=== PATIENT | female | born 1935 | race Caucasian/White ===

== ENCOUNTER → 2020-05-03 | Outpatient (CLI) | payer OTHER ==
[~2020-05-03] MED LIST: CATAPRES0.1 MG PO; CLARITIN10 MG PO; D3-200050 MCG PO; ENALAPRIL-HCTZ1 EACH PO; GLYBURIDE 1.21.25 M1 PO; KLOR-CON 10 ER10 MEQ PO; LEXAPRO20 MG PO; LOMOTIL TABLET1 EACH; METFORMIN HCL500 MG PO; NORCO 5-325 TA1 EACH PO; NORVASC 5 MG TAB5 MG PO; PAXIL 20 MG TAB20 M1 PO; PRAVACHOL20 MG PO; PRAVASTATIN SOD20 MG PO; RISEDRONATE SO150 MG PO; VICODIN ES TAB1 EACH PO
--- NOTE | 2020-05-13 16:06 | PATH ---
[address] [address] PATHOLOGY RPT PROCEDURE Name: MELISA SEO Room: [facility]#: [id number] Admission: 05/03/20 Date of : 33 Discharge: Report #: [id number] Path Case #: [id number] [facility] Accession Number: [id number] . 01 Material submitted: . PART A: breast - RIGHT BREAST 1:00 14CMFN. Modifiers: right, 1:00 PART B: breast - RIGHT BREAST 12:00 7CMFN. Modifiers: right . 01 Clinical history: . A. 1.62 X 1.65 X 1.63 CM B. 2.86 X 2.19 X 2.04 CM . 02 Diagnosis: A. 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 SEE COMMENT. . B. Right breast, 12:00, 7 cm from nipple, image guided core biopsies: - Benign breast tissue with focal luminal calcification, scant atrophic skeletal muscle and dense fibrosis, negative for atypia. See comment. (GOKUL/db; 05/04/2020) LBQ 05/04/2020 1632 Local . 02 Comment: SURGICAL PATHOLOGY CANCER CASE SUMMARY Protocol posting date: September 2019 . INVASIVE CARCINOMA OF THE BREAST: Biopsy Procedure ___ Other: Image guided core biopsy Specimen Laterality ___ Right Tumor Site ___ Clock position: 1 o'clock ___ Distance from nipple: 14 cm Tumor Size ___ Greatest dimension of largest invasive focus >1 mm: At least 13 mm Histologic Type ___ Invasive carcinoma of no special type (ductal) Histologic Grade (Findlay Histologic Score) Glandular (Acinar)/Tubular Differentiation ___ Score 3 (<10% of tumor area forming glandular/tubular structures) Nuclear Pleomorphism ___ Score 3 (vesicular nuclei, often with prominent nucleoli, exhibiting marked variation in size and shape, occasionally with very large and bizarre forms) Mitotic Rate ___ Score 3 [place] [address] PATHOLOGY RPT PROCEDURE Name: MELISA SEO Room: [facility] Yolanda#: [id number] Admission: 05/03/20 Date of : 33 Discharge: Report #: [id number] Path Case #: [id number] Overall Grade ___ Grade 3 (scores of 8 or 9) Ductal Carcinoma In Situ (DCIS) ___ Not identified Lymphovascular Invasion ___ Not identified Microcalcifications ___ Not identified Ancillary Studies ___ Performed on prior right breast biopsy around August 2012 ([id number]) Estrogen receptor 82% positive, progesterone receptor 5% positive, Her2 (IHC) 2+, Her2/FISH positive by polysomy, Ki-67 37% . Biomarker Studies ___ Pending . COMMENT Approximately 90% of the submitted tissues from specimen A show involvement by invasive tumor and non-neoplastic breast epithelial elements are not present in that specimen. Per discussion with Dr. Mercy Groves, breast tumor profile studies will be performed on A1 and will be the subject of an addendum report. Nusrat Law notified at approximately 1615 on 05/04/2020. Specimens A and B reviewed with Dr. Karina Hogan who agrees with the diagnoses. (GOKUL/db; 05/04/2020) . 02 Addendum: . Special studies report received from [facility], [address] [place] [address], [address], [place], [address], on case [id number], labeled with their number [id number], dated 05/10/2020. . Breast/Prognostic Marker Analysis . Specimen Site: Right Breast, 1:00 (Biopsy), Infiltrating Specimen ID #: [id number] . ER (Estrogen Receptor) Present/Positive Percent: 40.00% Analysis: Manual Comments: Staining Intensity: Weak-moderate. . NM (Progesterone Receptor) Absent/Negative Percent: 0.20% Analysis: Manual . [place] [address] PATHOLOGY RPT PROCEDURE Name: MELISA SEO Room: [facility] OSCAR Guerrero#: [id number] Admission: 05/03/20 Date of : 34 Discharge: Report #: [id number] Path Case #: [id number] Score: 2+ Analysis: Manual Comments: Additional studies: Reflex HER2 by FISH will be reported separately. . Ki-67 High Proliferation Percent: 30.00% Analysis: Manual . Time to Fixation (Cold Ischemic Time): 3 Minutes Duration of Fixation: 14 Hours Type of Fixative: 10% Neutral Buffered Formalin . Comments: ER/PgR testing at [employer]. is performed in compliance with the ASCO/CAP Clinical Practice Guidelines. If the result for ER is less than 1% it is reported as Negative; if the ER result is 1-10% it is reported as Low Positive; if the ER result is greater than 10% it is reported as Positive. If the result for PgR is less than 1% it is reported as Negative; if the PgR result is equal to or greater than 1%, it is reported as Positive. . Ref: Ymui KH, Jennifer KNAPP, Aydin M, et al. Estrogen and progesterone receptor testing in breast cancer. ASCO/CAP guideline update. Arch Pathol Lab Med. 2020; 144:545-563. . Whole slide image capture is performed using [employer] (BioIQ) platform. Image analysis, if ordered, is performed using Apps Genius software. . at [employer]. Reji Ordonez M.D. Pathologist . . Methodology The HER2 Receptor protein expression is analyzed using the Gaines HER2 rabbit monoclonal antibody (clone [id number]). This assay is used for diagnostic determination of the HER2 protein over-expression in paraffin embedded, formalin fixed breast cancer tissue on the [email or web address] Benchmark. The specimen is processed using a secondary antibody-HRP conjugate detection system. The membrane staining of the tumor is determined either by manual score or image analysis. This antibody is intended for in vitro diagnostic use. The score is reported as 0, 1+, 2+, or 3+. This test is used for clinical purposes. . A rabbit monoclonal antibody (clone SP1) that [place] [address] PATHOLOGY RPT PROCEDURE Name: MELISA SEO [id number] Admission: 05/03/20 Date of : 34 Discharge: Report #: [id number] Path Case #: [id number] Receptor is used to perform immunohistochemistry on routinely fixed (formalin) paraffin embedded tissue on the Gaines Benchmark. The specimen is processed using a secondary antibody-HRP conjugate detection system. The percentage of stained tumor nuclei is determined either manually or by image analysis. This test is intended for in vitro diagnostic use. This test is used for clinical purposes. . A rabbit monoclonal antibody (clone 1E2) that recognized the Progesterone Receptor is used to perform immunohistochemistry on routinely fixed (formalin) paraffin embedded tissue on the Gaines Benchmark. The specimen is processed using a secondary antibody-HRP conjugate detection system. The percentage of stained tumor nuclei is determined either manually or by image analysis. This test is intended for in vitro diagnostic use. This test is used for clinical purposes. . A rabbit monoclonal antibody (clone 30-9) that recognized Ki67 is used to perform immunohistochemistry on routinely fixed (formalin) paraffin embedded tissue on the Gaines Benchmark. The specimen is processed using a secondary antibody-HRP conjugate detection system. The percentage of stained tumor nuclei is determined either manually or by image analysis. This test is intended for in vitro diagnostic use. This test is used for clinical purposes. . Intended Use: This antibody is intended for in vitro diagnostic (IVD) use. HER2 (4B5) is a rabbit monoclonal antibody intended for the semi-quantitative detection of HER2 antigen in sections of formalin-fixed, paraffin embedded normal and neoplastic tissue. . This antibody is intended for in vitro diagnostic (IVD) use. Estrogen Receptor (ER) (SP1) is a rabbit monoclonal antibody (IgG) that is intended for the qualitative detection of estrogen receptor (ER) antigen in sections of formalin-fixed, paraffin-embedded tissue. ER is a rabbit monoclonal antibody that recognizes human estrogen receptor alpha. . This antibody is intended for in vitro diagnostic (IVD) use. Progesterone Receptor (NM) (1E2) is a rabbit monoclonal antibody (IgG) that is intended for the qualitative detection of progesterone receptor (NM) antigen in sections of formalin fixed, paraffin embedded tissue. NM is a rabbit monoclonal antibody that recognizes the A and B forms of the human progesterone receptor. . This antibody is intended for in vitro diagnostic (IVD) use. Ki-67 (30-9) is a rabbit monoclonal antibody (IgG) directed against C-terminal portion of Ki-67 antigen. Staining for Ki-67 can be used to aid in assessing the proliferative activity of normal and neoplastic tissue. Ki-67 is a nuclear protein expressed in proliferating cells. During the cell cycle, the Ki-67 antigen is present in the G1, S, G2 and M phase but is absent in the G0 (quiescent phase). [place] [address] PATHOLOGY RPT PROCEDURE Name: MELISA SEO Room: [facility]#: [id number] Admission: 05/03/20 Date of : 34 Discharge: Report #: [id number] Path Case #: [id number] . . Disclaimer: This Test was performed by [employer]. at [address] [place] [address], [facility]. . [employer] is a business unit of [employer]. a wholly-owned subsidiary of [employer] . This assay has not been validated on decalcified tissues. Results should be interpreted with caution if this specimen was decalcified given the likelihood of false negativity on decalcified specimens. . Any image(s) that accompany this report is/are a auto service representative image(s) only and should not be used to render a diagnosis. . This interpretation is contingent on the specimen and the clinical information received. . For any special tests/stains performed, known positive cells or tissues are tested with each marker and examined to ensure positivity. Positive and negative internal controls, if present, react appropriately. . This analysis is an adjunct to the evaluation of the referring physician and does not represent a final diagnosis. . The immunohistochemistry tests performed at [employer]. were validated on tissue fixed in 10% neutral buffered formalin. The performance characteristics of the tests performed on tissue processed in other fixatives is not known. . HER2 testing at [employer]., is performed in compliance with the 2018 updated ASCO/CAP Clinical Practice Guideline Focused Update. If the result is EQUIVOCAL (2+), it must be confirmed by an alternative assay such as FISH or Dual FLO. REF: Trevon CASTREJON, KYAW Rodriguez et al: Human Epidermal Growth Factor Receptor 2 Testing in Breast Cancer: ASCO/CAP Clinical Practice Guideline Focused Update. J Clin Oncol 36:7697-5053, 2018. . HER2 and ER/NM ASCO/CAP guidelines require fixation in neutral buffered formalin for a minimum of 6 and a maximum of 72 hours. Fixation times less than 6 hours may not adequately preserve cell proteins. Fixation times longer than 72 hours may cause excess cross-linking of proteins reducing the antigen available for staining. Either scenario can cause reduced staining; hence false negative results are possible and should be considered for these situations if the HER2 IHC score is less than 3+ or ER or NM is negative (no staining or <1% positive). It is recommended that specimens fixed longer than 72 hours with HER2 IHC scores less than 3+ [place] [address] PATHOLOGY RPT PROCEDURE Name: HILARYODELLMELISA R [facility]: [facility].#: [id number] Admission: 05/03/20 Date of : 34 Discharge: Report #: [id number] Path Case #: [id number] confirmed by HER2 FISH or Dual FLO. The time from biopsy/excision to fixation in formalin (cold ischemic time) must be less than 1 hour. Time to fixation (cold ischemic time) greater than 1 hour should be interpreted with caution. HER2 testing, mainly HER2 by FISH, is particularly vulnerable since excessive cold ischemic time results in preferential loss of HER2 probe signals that may lead to false negative results. . SCORE STAINING PATTERN IN TUMOR CELLS INTERPRETATION RESULTS 0 No staining observed or incomplete, faint membrane staining in less than or equal to 10% of tumor cells. Negative 1+ Incomplete, faint membrane staining in greater than 10% of tumor cells. Negative 2+ Weak to moderate complete membrane staining observed in greater than 10% of tumor cells. Equivocal* *Must be confirmed by alternative assay (IHC/FISH/Dual FLO) 3+ Intense, complete membrane staining in greater than 10% of tumor cells. Positive . A complete copy of the report is on file. . Professional and Technical services performed by [employer]. at [address] [place] [address], [address] [address]. . (MLK:kel 05/10/2020) . [facility]/05/10/2020 Addendum Electronically Signed by Josh Cota MD, Pathologist Addendum #2: Special studies report received from [facility], [address] [place] [address], [facility] [address], [place], [address], on case [id number], labeled with their number [id number], dated 05/13/2020. . Fluorescence in situ Hybridization (FISH) Report HER2/CRISTINA-17 Dual-Probe (Breast Cancer) . Result: Negative/Not Amplified HER2/CRISTINA-17 Ratio: 1.1 Avg number of HER2 Signals/Nucleus: 3.9 . Indication for Study: Breast Cancer . Specimen Site/Type: Right Breast, 1:00 (Biopsy) [place] [address] PATHOLOGY RPT PROCEDURE Name: MELISA SEO Room: [facility]#: [id number] Admission: 05/03/20 Date of : 34 Discharge: Report #: [id number] Path Case #: [id number] . Fixative: 10% Neutral Buffered Formalin . Time to Fixation: 3 minutes . Duration of Fixation: 14 Hours . HER2 FISH ANALYSIS Number of tumor cells counted: 20 Number of observers: 2 Avg number of HER2 Signals/Nucleus: 3.9 Avg number of CRISTINA-17 Signals/Nucleus: 3.4 Ratio of average HER2/CRISTINA-17: 1.1 . See report [id number] for further information. . Reviewed and electronically signed by Reji Ordonez M.D. on 05/13/2020 at [employer]. Reji Ordonez M.D. . . Methodology: A FDA approved DAKO HER2 IQFISH pharmDX (HER2/CRISTINA-17 DNA Probe Kit) was used for the assessment of HER2 gene amplification status. The FISH analysis was performed on areas of invasive tumor cells that were defined by a pathologist from a corresponding H and E slide. A minimum of twenty invasive tumor nuclei were analyzed by two technologists. For each nucleus, the number of HER2 signals and the number of centromere 17 (CRISTINA-17) signals were recorded. Enumeration results are reported as a ratio of the total HER2 hybridization signals to CRISTINA-17 hybridization signals. An average number of HER2 signals/nucleus and an average number of centromere 17 signals/nucleus were also recorded. If the HER2/CRISTINA-17 ratio is >/= 2, the HER2 gene status is Amplified/Positive. If the HER2/CRISTINA-17 ratio is <2, the HER2 gene status is Non-Amplified/Negative. If results are at or near the cut off (1.8-2.2), an additional 20 nuclei are counted and the ratio for 40 nuclei is recalculated. A HER2/CRISTINA-17 ratio of 1.8-2.2 should be interpreted with caution. The HER2 FISH results are reported using the 2018 ASCO/CAP guidelines. . ASCO/CAP 2018 SCORING CRITERIA GROUP 1 HER2/CRISTINA-17 ratio >/= 2.0 HER2 signals/cell >/= 4.0 FISH Positive . GROUP 2 HER2/CRISTINA-17 ratio >/= 2.0 HER2 signals/cell < 4.0 Additional work-up required (see comments) [place] [address] PATHOLOGY RPT PROCEDURE Name: MELISA SEO Room: [facility] Guerrero#: [id number] Admission: 05/03/20 Date of : 34 Discharge: Report #: [id number] Path Case #: [id number] . GROUP 3 HER2/CRISTINA-17 ratio < 2.0 HER2 signals/cell >/= 6.0 Additional work-up required (see comments) . GROUP 4 HER2/CRISTINA-17 ratio < 2.0 HER2 signals/cell >/= 4.0 AND < 6.0 Additional work-up required (see comments) . GROUP 5 HER2/CRISTINA-17 ratio < 2.0 HER2 signals/cell < 4.0 FISH Negative . Specimen handling: Tissue samples should be preserved in 10% neutral buffered formalin for 18-24 hours per FDA approved DAKO HER2 IQFISH pharmDX. Extended fixation time might increase the incubation time required for Pepsin digestion. ASCO/CAP guidelines requires fixation for a minimum of 6 and a maximum of 72 hours. The time from biopsy/excision to fixation in formalin (cold ischemic time) must be less than an hour. Time to fixation (cold ischemic time) greater than 1 hour should be interpreted with caution. HER2 testing, mainly HER2 by FISH, is particularly vulnerable since excessive cold ischemic time results in preferential loss of HER2 probe signals that may lead to false negative results. . Intended Use: HER2 IQFISH pharmDX is indicated as an aid in the assessment of breast cancer patients for whom Herceptin (Trastuzumab), PERJETATM (pertuzumab) or KADCYLATM (ado-trastuzumab emtansine) treatment is being considered. Results from HER2 IQFISH pharmDX are also used as an adjunct to the clinicopathologic information currently used for estimating prognosis in stage II, node-positive breast cancer patients. . Reference: Trevon CASTREJON, KYAW Rodriguez et al: Human Epidermal Growth Factor Receptor 2 Testing in Breast Cancer: ASCO/CAP Clinical Practice Guideline Focused Update. J Clin Oncol 36:7077-3203, 2018. . DAKO kit: Histology FISH Accessory kit code K5799 . Disclaimer(s): This assay has not been validated on decalcified tissues. Results should be interpreted with caution if this specimen was decalcified given the likelihood of false negativity on decalcified specimens. Any image(s) that accompany this report is/are a auto service representative image(s) only and should not be used to [place] a [place] [address] PATHOLOGY RPT PROCEDURE Name: MELISA SEO Room: [facility]#: [id number] Admission: 05/03/20 Date of : 34 Discharge: Report #: [id number] Path Case #: [id number] . Performing Labs: This Test was performed at [employer]. at [address], [address]. [employer] is a business unit of [employer] a wholly-owned subsidiary of [employer] . A copy of the complete report is on file. . Professional services performed by [employer]. at [address] [address], [place] [address]. Technical services performed by [employer]. at [address] [place] [address] [address], [place] [address]. . (GOKUL:[facility] 05/13/2020) . [facility]/05/13/2020 Addendum Electronically Signed by Pb Acosta MD, Pathologist . 02 Electronically signed: . Pb Acosta MD, Pathologist NPI- [id number] . 01 Gross description: . A. The specimen is received in formalin, labeled "Melisa Seo, right breast 1:00 14 cm from nipple". Received are multiple needle cores of fibrofatty tissue measuring 1.7 x 0.8 x 0.2 cm in aggregate dimensions. The specimen is submitted entirely in cassettes A1 through A3. The cold ischemic time is 3 minutes. The total formalin fixation time is 14 hours. . . B. The specimen is received in formalin, labeled "Melisa Seo, right breast 12:00 7 cm from nipple". Received are multiple needle cores of fibrofatty tissue measuring 1.5 x 0.6 x 0.2 cm in aggregate dimensions. The specimen is submitted entirely in cassettes B1 through B3. The cold ischemic time is 5 minutes. The total formalin fixation time is 14 hours and 6 minutes. (CAA; 05/03/2020) QAC/QAC 05/03/2020 1739 Local . 02 Pathologist provided ICD-10: C50.911, N60.31 . 02 CPT . 634690, 709091 Specimen Comment: A courtesy copy of this report has been sent to [phone], [phone] Specimen Comment: [id number], , [place] [address] PATHOLOGY RPT PROCEDURE Name: MELISA SEO Room: [facility]#: [id number] Admission: 05/03/20 Date of : 34 Discharge: Report #: [id number] Path Case #: [id number] Specimen Comment: Report sent to ,DR GROVES,DR PATTERSON / DR LAW Performed at: 01 [facility] [address] [address] [facility] [address], [place], [place] [id number] MD Cayetano Lemos MD Phone: [phone] Performed at: [address] [facility] [address] RADHA Flores [id number] MD Pb Acosta MD Phone: [phone]
== END | disposition home or self-care (01) ==
LOC: M.ULTRA 07:28
PROVIDERS: ATTEND Internal Medicine Hematology & Oncology
DX: N63.12 Unspecified lump in the right breast, upper inner quadrant (principal); C50.911 Malignant neoplasm of unspecified site of right female breast; N60.31 Fibrosclerosis of right breast; R92.8 Other abnormal and inconclusive findings on diagnostic imaging of breast; Z79.899 Other long term (current) drug therapy; Z98.890 Other specified postprocedural states

== ENCOUNTER 2020-05-27 06:36 | Observation (INO) | payer OTHER ==
[~2020-05-27] VITALS: Ht 160 cm; Wt 59.9 kg
--- NOTE | ~2020-05-27 | H ---
[address] [address] HISTORY AND PHYSICAL Name: MELISA RICHARD Room: [address] Micah Guerrero#: [id number] Admission: 05/27/20 Attend Phys: Willy Loving DO Discharge: 05/28/20 Date of : 33 Report #: [id number] THIS REPORT FOR: //name// cc: Sofia Murray MD, Karmel MD ~ Please refer to the History and Physical performed in the physician's office. By: 1445Medical Records Staff [facility] /[place]
[~2020-05-27 06:36] MED LIST changes: -NORVASC 5 MG TAB5 MG PO; +NORVASC5 MG PO
[2020-05-27 07:03] LABS: HEMATOCRIT 39.2 % (37.0-47.0); HEMOGLOBIN 13.3 gm/dL (12.0-15.0); MCH 30.7 pg (26.0-34.0); MCHC 33.9 g/dL (28.0-37.0); MCV 90.5 fL (80.0-100.0); RBC 4.33 mil/uL (4.20-5.00); RDW-CV 12.4 % (10.5-14.5); WBC 8.1 thou/uL (4.0-11.0)
[2020-05-27 07:26] LABS: CALCIUM 8.9 mg/dL (8.5-10.1); CREATININE 1.1 mg/dL (0.6-1.3); POTASSIUM 3.5 mmol/L (3.5-5.1)
--- NOTE | 2020-05-27 07:59 | EKG ---
[place] [address] ELECTROCARDIOGRAM REPORT Name: ODELL RICHARDHEIKE Vasquez Room: [address]R.#: [id number] Admission: 05/27/20 Attend Phys: Willy Loving DO Discharge: Date of : 33 Date of Service: 05/27/20721 Report #: [id number] THIS REPORT FOR: //name// [facility] Test Date: 2020-05-27 Test Time: 07:22:37 Pat Name: MELISA RICHARD Department: Room: [place] [address] Gender: F [employer] Manager: JEF : 1935 Requested By: Willy Loving Order Number: [id number] Kristie MD: Hiram Raygoza Measurements Intervals [place] Rate: 92 P: 56 DE: 177 QRS: 9 QRSD: 83 T: 39 QT: 354 QTc: 438 Interpretive Statements Sinus rhythm Compared to ECG 10/02/2012 08:55:22 Sinus tachycardia no longer present Electronically Signed On 05-27-2020 7:59:35 CDT by Hiram Raygoza [email or web address] <ELECTRONICALLY SIGNED> By: Hiram Raygoza MD, [facility] 05/27/20 0759 0722 1 Hiram Raygoza MD, [facility] /EPI
[2020-05-27 16:07] VITALS: BP 155/65
[2020-05-27 19:21] VITALS: BP 164/64
[2020-05-28] VITALS: BP 172/62
[2020-05-28 01:29] VITALS: BP 142/55
[2020-05-28 03:36] VITALS: BP 135/52
[2020-05-28 04:11] LABS: ABSOLUTE BASOPHILS 0.1 thou/uL (0.0-0.2); ABSOLUTE LYMPHOCYTES 1.5 thou/uL (0.8-5.3); ABSOLUTE MONOCYTES 1.1 thou/uL (0.0-1.2); ABSOLUTE NEUTROPHILS 10.2 thou/uL (1.6-8.1); BASOPHILS 0.4 %; HEMATOCRIT 34.1 % (37.0-47.0); HEMOGLOBIN 11.7 gm/dL (12.0-15.0); LYMPHOCYTES 11.8 %; MCH 30.9 pg (26.0-34.0); MCHC 34.3 g/dL (28.0-37.0); MCV 90.1 fL (80.0-100.0); MONOCYTES 8.5 %; MPV 8.3 fl. (7.2-11.1); NUCLEATED RBCS 0 /100WBC; PLATELET COUNT* 187 thou/uL (150-400); POLYS 79.3 %; RBC 3.79 mil/uL (4.20-5.00); RDW-CV 12.4 % (10.5-14.5); WBC 12.8 thou/uL (4.0-11.0)
[2020-05-28 07:04] LABS: CALCIUM 8.6 mg/dL (8.5-10.1); CREATININE 1.1 mg/dL (0.6-1.3); POTASSIUM 4.1 mmol/L (3.5-5.1)
[2020-05-28 07:50] VITALS: BP 139/58
[2020-05-28 09:52] VITALS: BP 139/58
[2020-05-28 14:16] VITALS: BP 139/58
--- NOTE | 2020-06-01 17:06 | PATH ---
[address] [address] PATHOLOGY RPT PROCEDURE Name: HILARYMELISA R Room: [address] Micah Guerrero#: [id number] Admission: 05/27/20 Date of : 33 Discharge: 05/28/20 Report #: [id number] Path Case #: [id number] [facility] Accession Number: [id number] . 01 Material submitted: . breast - RIGHT BREAST TISSUE. Modifiers: right . 01 Clinical history: . BREAST CANCER, RIGHT BREAST MALIGNANT NEOPLASM . 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 - Fat necrosis with dense fibrosis and coarse stromal calcifications in association with prior biopsy changes including two white plastic beads, located at approximately 12:00, 7 cm from nipple. - See comment. . . SURGICAL PATHOLOGY CANCER CASE SUMMARY Protocol posting date: September 2019 . INVASIVE CARCINOMA OF THE BREAST: Resection Procedure ___ Total mastectomy Specimen Laterality ___ Right + Tumor Site + ___ Clock position: 1 o'clock + ___ Distance from nipple: 14 cm (see comment) + ___ Upper inner quadrant Tumor Size ___ Greatest dimension of largest invasive focus >1 mm: 22 mm Histologic Type ___ Invasive carcinoma of no special type (ductal) Histologic Grade ([place] Histologic Score) Glandular (Acinar)/Tubular Differentiation ___ Score 2 (10% to 75% of tumor area forming glandular/tubular structures) Nuclear Pleomorphism ___ Score 3 (vesicular nuclei, often with prominent nucleoli, exhibiting marked variation in size and shape, occasionally with very large and bizarre forms) Mitotic Rate ___ Score 3 [place] [address] PATHOLOGY RPT PROCEDURE Name: MELISA SEO [address]: [address] [id number] Admission: 05/27/20 Date of : 34 Discharge: 05/28/20 Report #: [id number] Path Case #: [id number] ___ Grade 3 (scores of 8 or 9) + Tumor Focality + ___ Single focus of invasive carcinoma Ductal Carcinoma In Situ (DCIS) ___ Not identified + Lobular Carcinoma In Situ (LCIS) + ___ Not identified Tumor Extension Skin ___ Skin is present and uninvolved Nipple ___ DCIS does not involve the nipple epidermis Skeletal Muscle ___ No skeletal muscle is present Margins Invasive Carcinoma Margins ___ Uninvolved by invasive carcinoma Distance from closest margin: 1 mm + Specify closest margin: Superior DCIS Margins ___ Not applicable (no DCIS in specimen) Regional Lymph Nodes ___ No lymph nodes submitted or found Treatment Effect in the Breast ___ No known presurgical therapy + Lymphovascular Invasion + ___ Not identified + Dermal Lymphovascular Invasion + ___ Not identified . PATHOLOGIC STAGE CLASSIFICATION (pTNM, AJCC 8TH EDITION) Primary Tumor (pT) ___ pT2: Tumor >20 mm but < or equal to 50 mm in greatest dimension Regional Lymph Nodes (pN) ___ pNX: Regional lymph nodes cannot be assessed + Additional Pathologic Findings + Specify: Multiple pigmented seborrheic keratoses + Ancillary Studies + ___ Breast Biomarker Testing Performed on Previous Biopsy + Testing Performed on A1 + Estrogen Receptor (ER) + ___ Positive (40%) + Progesterone Receptor (PgR) + ___ Negative (0.2%) + HER2 (by immunohistochemistry) + ___ Equivocal (Score 2+) + HER2 (by in situ hybridization) + ___ Negative (not amplified) + ___ Ki-67 percentage of positive nuclei: 30% [place] [address] PATHOLOGY RPT PROCEDURE Name: MELISA SEO Room: [address] Micah Guerrero#: [id number] Admission: 05/27/20 Date of : 33 Discharge: 05/28/20 Report #: [id number] Path Case #: [id number] + Microcalcifications + ___ Present in non-neoplastic tissue + ___ Other: Extensive medial calcification of blood vessels (GOKUL/db; 05/31/2020) LBQ 05/31/2020 1749 Local . 02 Comment: The localization of the invasive tumor provided in the synoptic data is partially provided based on information from the prior biopsy ([id number]). (GOKUL/db; 05/31/2020) . 02 Electronically signed: . Pb Acosta MD, Pathologist NPI- [id number] . 01 Gross description: . The specimen is received in formalin, labeled "Melisa Seo, right breast tissue" and consists of a 942 g oriented mastectomy specimen. No orientation is designated on the requisition, however there are 2 long sutures at one tip of the skin ellipse consistent with lateral and 2 short sutures in the middle of the skin ellipse consistent with superior. The breast tissue measures 18.3 cm L-M, 15.5 cm S-I, and 5.0 cm A-P with an anterior pink-steen skin ellipse measuring 21.0 x 16.0 cm. The skin displays an everted nipple areolar complex measuring 6.0 x 5.6 cm. At the inferior aspect of the skin there is a cluster of multiple brown slightly raised lesions measuring between 0.2 cm and 1.5 cm. The specimen is inked as follows: Posterior black, superior blue, and inferior green. It is sectioned from lateral to medial revealing a white-pink mass at approximately 12:00, 7.0 cm from nipple, measuring 2.1 x 1.1 cm that is 3.0 cm to posterior, 3.0 cm to superior, and greater than 5 cm from inferior. The mass shows previous biopsy site changes along with 2 white plastic beads. Approximately 3.5 cm medial/superior to the first described mass, at the 1 o'clock position in the upper inner quadrant, is a second circumscribed pink-steen mass measuring 2.2 x 1.9 cm. This mass grossly approaches superior, 0.5 cm to posterior, and greater than 5 cm to inferior. The mass shows previous biopsy changes with a white bead embedded within. The uninvolved parenchyma is yellow orange with approximately 30-40% fibrous tissue but no additional masses or lesions. Order Entry Clerk sections are submitted as follows: . A1: Nipple A2: Skin lesions A3-A5: First described mass A6: Posterior margin first described mass A7: Second described mass to superior margin A8: Second described mass to posterior margin A9: Second described [place] [address] PATHOLOGY RPT PROCEDURE Name: MELISA SEO Room: [address]#: [id number] Admission: 05/27/20 Date of : 34 Discharge: 05/28/20 Report #: [id number] Path Case #: [id number] A10: Upper outer quadrant A11: Lower outer quadrant A12: Upper inner quadrant between first and second described masses A13: Lower outer quadrant . The specimen was collected at 9:55 AM on 05/27/2020 and placed in formalin at 10:03 AM. The cold ischemic time is 8 minutes and the total formalin fixation time is greater than 6 hours but less than 72 hours. (NANDA; 05/28/2020) AMAURI/AMAURI 05/31/2020 1719 Local . 02 Pathologist provided ICD-10: C50.911, N64.1 . 02 CPT . 751113 Specimen Comment: A courtesy copy of this report has been sent to [phone], [phone] Specimen Comment: [phone], Specimen Comment: Report sent to ,DR KAMARA / DR PATTERSON Performed at: [address] [facility] [address], [place], [place] [id number] MD Cayetano Lemos MD Phone: [phone] Performed at: 02 [facility] [place] [address] [address], [place], [place] [id number] MD Pb Acosta MD Phone: [phone]
--- NOTE | 2020-06-04 10:32 | OP ---
[address] [address] OPERATIVE REPORT Name: MELISA RICHARD Room: [address] Micah Guerrero#: [id number] Admission: 05/27/20 Attend Phys: Willy Loving DO Discharge: 05/28/20 Date of : 34 Report #: [id number] THIS REPORT FOR: //name// cc: Sofia Murray MD, Karmel MD ~ CC: Willy Groves DICTATED BY: Compa Blake DO DATE OF SERVICE: 05/27/2020 PREOPERATIVE DIAGNOSIS: Recurrent ductal carcinoma of the right breast. POSTOPERATIVE DIAGNOSIS: Recurrent ductal carcinoma of the right breast. SURGEON: Dr. Loving. CO-SURGEON: Compa Blake, PGY-4. RESOURCES REPRESENTATIVE: MS Del[place]3. SURGERY PERFORMED: Right simple mastectomy. ANESTHESIA: General. ESTIMATED BLOOD LOSS: 20 mL. SPECIMEN: Right breast. COMPLICATIONS: None. DRAIN: A 15-[place] RODNEY. HISTORY OF PRESENT ILLNESS: The patient is an 85-year-old female who presented to the office with history of recurrent ductal carcinoma of the right breast, HER2 positive. We discussed surgical options and she elected to proceed with simple mastectomy. Risks, benefits, alternatives discussed at length and she agreed to proceed with surgery. DESCRIPTION OF PROCEDURE: After consent was obtained, the patient was taken to the operating room and placed in the supine position. SCDs applied to bilateral lower extremities. Safety belt placed over the patient's waist. Antibiotics were given for surgical prophylaxis. The patient then underwent general [facility] [address] [place] [address] OPERATIVE REPORT Name: MELISA RICHARD Christina Room: [address] Micah Guerrero#: [id number] Admission: 05/27/20 Attend Phys: Willy Loving DO Discharge: 05/28/20 Date of : 34 Report #: [id number] endotracheal anesthesia without any complication. The patient's chest was prepped and draped in the standard sterile fashion. Timeout was performed to confirm the patient and procedure. At this point, we yeyo an elliptical incision roughly from the edge of the sternum out towards the axilla laterally. The patient's breast tissue was quite dense and we marked out the inferior mammary fold and a portion of the breast, just superior to the nipple. We made an elliptical incision using a 10 blade scalpel. Electrocautery was used for hemostasis and to dissect down to the level of the subcutaneous breast tissue. We then created our flap proximally up towards the clavicle, ensuring to maintain an adequate superior flap. We then carried dissection medially towards the sternum, inferiorly towards the inframammary fold and laterally out towards her axilla. Once dissection was complete, we then carried dissection inferiorly down towards the pectoralis fascia. Once the fascia was encountered in a circumferential fashion we then began our dissection of the breast tissue off of the pectoralis fascia. We did all these using electrocautery. Once the breast was completely removed from the chest wall, it was marked with a short stitch superiorly and a long stitch laterally and sent for pathologic evaluation. We ensured that there was no further breast tissue against the pectoralis fascia. Once this was ensured, hemostasis was completely achieved with electrocautery. We then irrigated the chest copiously with sterile water. Again the chest wall was inspected for any bleeding. Once there was nothing, we placed a 15-[place] RODNEY drain up against the chest wall. Subcutaneous tissue was then reapproximated in a layered fashion using a 2-0 Vicryl. Skin was closed with a running subcuticular stitch of 4-0 Monocryl. Drain stitch was placed to secure the drain in place. Skin glue was applied over the incision. All needle, instrument, and sponge counts were correct x 2 at the end of the case. The patient tolerated the procedure well and was awoken from general anesthesia and transferred to PACU in stable condition. <ELECTRONICALLY SIGNED> By: Willy Loving DO 06/04/20 1032 1050 [id number] Loving DO /kofi
== END 2020-05-28 14:04 | disposition home or self-care (01) ==
LOC: M.TBA 06:36 → M.ORTHSURG 06:36 → M.PRE 10:00 → M.ORTHSURG 12:01 → M.PRE 12:28 → M.ORTHSURG 05-28 14:04
PROVIDERS: ADMIT Surgery; ATTEND Surgery
DX: C50.911 Malignant neoplasm of unspecified site of right female breast (principal); E11.9 Type 2 diabetes mellitus without complications; I10 Essential (primary) hypertension; Z79.84 Long term (current) use of oral hypoglycemic drugs; Z85.038 Personal history of other malignant neoplasm of large intestine; Z20.828 Contact with and (suspected) exposure to other viral communicable diseases